=== PATIENT | male | born 1985 | race African-American/Black ===

== ENCOUNTER 2024-10-28 14:29 | Emergency (ER) | payer OTHER ==
[2024-10-28] MEDS ORDERED: NA CHLORIDE 0.9% 500 ML ONE (14:54)
[2024-10-28] MEDS ORDERED: KETOROLAC 30 MG/ML INJ ONE (14:54)
[2024-10-28 15:20] LABS: Absolute Lymphocytes (CBC) 2.1 K/uL (0.7-4.9); Hematocrit 42.9 % (39.6-49.0); Hemoglobin 14.4 g/dL (13.6-17.9); MCH 29.6 pg (27.0-35.0); MCHC 33.5 g/dL (32.0-36.0); MCV 88.2 fL (80-100); MPV 7.8 fL (7.6-11.3); Nucleated RBC Absolute Count 0.0 (0-0); Nucleated Red Blood Cells % 0.1 % (0-0); RBC Red Blood Cell Count 4.87 M/uL (4.33-5.43); White Blood Count 6.30 thou/uL (4.3-10.9)
[2024-10-28 15:30] LABS: PT Prothrombin Time 11.3 SECONDS (10-13.0); Protime INR 1.0
[2024-10-28 15:35] LABS: Sqamous Epithelial None Seen /HPF (None Seen); Urine Culture Reflex Order NOT NEEDED; Urine Microscopic Reflex YN ORDER UMIC
[2024-10-28 15:42] LABS: ALT/SGPT 35 U/L (16-61); AST/SGOT 24 U/L (15-37); Albumin 3.7 g/dL (3.4-5.0); Albumin/Globulin Ratio 1.1 (1.1-1.8); Alkaline Phosphatase 40 U/L (45-117); Anion Gap 6.3 mEq/L (5.0-15.0); BUN Blood Urea Nitrogen 12 mg/dL (7-18); Globulin 3.4 g/dL (2.3-3.5); Glucose Level 111 mg/dL (74-106); Potassium 4.3 mEq/L (3.5-5.1); Troponin High Sensitivity 4.1 pg/mL (<58.9)
[2024-10-28 15:57] LABS: METHAMPHETAM NEGATIVE (NEGATIVE); THC Cannibis NEGATIVE (NEGATIVE)
[2024-10-28 15:57] LABS: Bilirubin Indirect, Calculated 0.2 mg/dL (0.2-0.8)
--- NOTE | 2024-10-28 16:11 | RAD REPORT ---
EXAM: Chest Single View HISTORY: 39 years Male CHEST PAIN COMPARISON: No prior exams FINDINGS: LUNGS/PLEURA: The lungs are clear. No pleural effusions or pneumothorax. No pulmonary edema. CARDIAC/MEDIASTINUM: The cardiac silhouette is within normal limits. UPPER ABDOMEN: No significant abnormality. BONES: No acute abnormality. LINES/TUBES/OTHER: N/A IMPRESSION: No evidence of acute cardiopulmonary disease.
--- NOTE | 2024-10-28 17:54 | ER ---
Nurse's Notes [facility] Name: Garrett Couch Age: 39 yrs Sex: Male : 1985 Arrival Date: 10/28/2024 Time: 14:29 Bed 6 Private MD: Diagnosis: Chest pain, unspecified Presentation: 10/28 14:37 Chief complaint: Patient states: Chest discomfort that began suddenly just before 1300 ss today. Nursing Home nurse administered 324 mg ASA, and Nitro SL x 3 without relief. Coronavirus screen: Client denies travel out of the [place] in the last 14 days. Ebola Screen: Patient denies exposure to infectious person. Patient denies travel to an Ebola-affected area in the 21 days before illness onset. Initial Sepsis Screen: Does the patient meet any 2 criteria? No. Patient's initial sepsis screen is negative. Does the patient have a suspected source of infection? No. Patient's initial sepsis screen is negative. Risk Assessment: Do you want to hurt yourself or someone else? Patient reports no desire to harm self or others. Onset of symptoms was October 28, 2024. Care prior to arrival: IV initiated. 18 GA, in the right antecubital area. 14:37 Method Of Arrival: Law Enforcement: [place] [employer] 14:37 Acuity: SHANA 3 ss Triage Assessment: 15:04 General: Appears in no apparent distress. Behavior is calm, cooperative, appropriate bp for age. Pain: Complains of pain in chest. EENT: No deficits noted. Neuro: No deficits noted. Cardiovascular: Reports chest pain. Respiratory: No deficits noted. GI: No signs and/or symptoms were reported involving the gastrointestinal system. : No signs and/or symptoms were reported regarding the genitourinary system. Derm: No deficits noted. Musculoskeletal: No deficits noted. Historical: - Allergies: 14:39 No Known Allergies; ss - Home Meds: 14:40 lisinopril 20 mg Oral tablet 1 tab daily [Active]; ss - PMHx: 14:39 Asthma; Hypertensive disorder; ss - PSHx: 14:39 None; ss - Immunization history:: Adult Immunizations up to date. - Infectious Disease History:: Denies. - Social history:: Smoking status: Patient denies any tobacco usage or history of. Screenin:05 [facility] ED Fall Risk Assessment (Adult) History of falling in the last 3 months, bp including since admission No falls in past 3 months (0 pts) Confusion or Disorientation No (0 pts) Intoxicated or Sedated No (0 pts) Impaired Gait No (0 pts) Mobility Assist Device Used No (0 pt) Altered Elimination No (0 pt) Score/Fall Risk Level 0 - 2 = Low Risk Oriented to surroundings. Abuse screen: Denies threats or abuse. Denies injuries from another. Nutritional screening: No deficits noted. Tuberculosis screening: No symptoms or risk factors identified. Assessment: 15:05 General: SEE TRIAGE NOTE. bp 15:51 Reassessment: Patient appears in no apparent distress at this time. Patient and/or db family updated on plan of care and expected duration. Pain level reassessed. Patient is alert, oriented x 3, equal unlabored respirations, skin warm/dry/pink. General: Appears in no apparent distress. comfortable, Behavior is calm, cooperative. Vital Signs: 14:37 BP 129 / 79; Pulse 83; Resp 16; Temp 98.1(O); Pulse Ox 99% on R/A; Weight 102.51 kg; ss Height 5 ft. 10 in. ; Pain 7/10; 15:30 BP 112 / 74; Pulse 77; Resp 16; Pulse Ox 98% ; db 18:08 BP 120 / 73; Pulse 74; Resp 15; Pulse Ox 98% ; bp 14:37 Body Mass Index 32.43 (102.51 kg, 177.8 cm) ss 14:37 Pain Scale: Adult ss ED Course: 14:32 Patient arrived in ED. bc6 14:32 [facility]. cp 14:32 Marco Ruiz MD is Attending Physician. cp 14:39 Triage completed. ss 14:40 Arm band placed on right wrist. ss 14:58 El Unger, GISELL is Primary Nurse. bp 15:05 Patient has correct armband on for positive identification. Client placed on continuous bp cardiac and pulse oximetry monitoring. NIBP monitoring applied. filtration plant mechanic on. Pulse ox on. NIBP on. 15:05 Initial lab(s) drawn, by ED staff, sent to lab. EKG done, by ED staff, reviewed by bp Marco Quesada PA-C. Inserted saline lock: 20 gauge in right antecubital area, using aseptic technique. Blood collected. Flushed with 10 mL NS. Patient maintains SpO2 saturation greater than 95% on room air. 15:07 EKG done, by optical coating technician. ts3 15:18 Urine collected: clean catch specimen, sent to lab. ts3 16:06 XRAY Chest (1 view) In Process Unspecified. EDMS 17:52 Mitzi No MD is Referral Physician. cp 18:09 No provider procedures requiring assistance completed. IV discontinued, intact, bp bleeding controlled, No redness/swelling at site. Pressure dressing applied. Administered Medications: 15:19 Drug: Ketorolac IVP 15 mg IVP once Route: IVP; Site: right antecubital; bp 18:10 Follow up: Response: No adverse reaction bp 15:19 Drug: NS 0.9% IV 500 ml 500 ml IV at 1 bolus once; to be given as a bolus over 60 bp minutes Volume: 500 ml; Route: IV; Rate: 1 bolus; Site: right antecubital; 18:10 Follow up: IV Status: Completed infusion bp Medication: 15:05 VIS not applicable for this client. bp Outcome: 17:53 Discharge ordered by MD. cp 18:09 Discharged to Law Enforcement bp 18:09 Condition: stable 18:09 Discharge instructions given to police, Instructed on discharge instructions, follow up and referral plans. medication usage, Demonstrated understanding of instructions, follow-up care, medications, Prescriptions given X 1, 18:10 Patient left the ED. bp Signatures: Dispatcher [employer] EDSC Cristal Ospina RN RN ss Marco Quesada, PA-Jazzmine PA-El Schaefer cp, RN RN bp Shelby Jaeger RN RN Darlyn [facility] Zain Seymoursha ts3
--- NOTE | 2024-10-28 17:54 | EDPHYS ---
Physician Documentation [facility] Name: Garrett Couch Age: 39 yrs Sex: Male : 1985 Arrival Date: 10/28/2024 Time: 14:29 Bed 6 Private MD: ED Physician Marco Ruiz HPI: 10/28 14:35 This 39 yrs old Black Male presents to ER via Unassigned with complaints of Chest Pain. cp 14:35 The patient or guardian reports chest pain that is located primarily in the anterior cp chest wall, left. The pain radiates to left neck. The chest pain is described as a pressure. Duration: The patient or guardian reports a single episode, that is still ongoing, started about 1130. 14:35 Associated signs and symptoms: Pertinent negatives: abdominal pain, cough, diaphoresis, cp lower extremity pain, lower extremity swelling, palpitations, shortness of breath, syncope, vomiting, fever. 14:35 Severity of pain: in the emergency department the pain is unchanged. cp Historical: - Allergies: 14:39 No Known Allergies; ss - Home Meds: 14:40 lisinopril 20 mg Oral tablet 1 tab daily [Active]; ss - PMHx: 14:39 Asthma; Hypertensive disorder; ss - PSHx: 14:39 None; ss - Immunization history:: Adult Immunizations up to date. - Infectious Disease History:: Denies. - Social history:: Smoking status: Patient denies any tobacco usage or history of. ROS: 14:40 Constitutional: Negative for body aches, chills, fever, poor PO intake, cp 14:40 Cardiovascular: Positive for chest pain, edema, palpitations, cp 14:40 Respiratory: Negative for cough, shortness of breath, wheezing, Exam: 14:45 Constitutional: The patient appears in no acute distress, alert, awake, cp non-diaphoretic, non-toxic, well developed, well nourished, 14:45 Head/Face: Normocephalic, atraumatic. cp 14:45 Eyes: Periorbital structures: appear normal, Conjunctiva: normal, no exudate, no injection, Sclera: no appreciated abnormality, Lids and lashes: appear normal, bilaterally, 14:45 ENT: External ear(s): are unremarkable, Nose: is normal, Mouth: Lips: moist, Oral mucosa: moist, Posterior pharynx: Airway: no evidence of obstruction, patent, 14:45 Chest/axilla: Inspection: normal, Palpation: is normal, no crepitus, no tenderness, 14:45 Cardiovascular: Rate: normal, Rhythm: regular, Edema: is not appreciated, JVD: is not appreciated, 14:45 Respiratory: the patient does not display signs of respiratory distress, Respirations: normal, no use of accessory muscles, no retractions, labored breathing, is not present, Breath sounds: are clear throughout, no decreased breath sounds, no stridor, no wheezing, 14:45 Abdomen/GI: Inspection: abdomen appears normal, Bowel sounds: active, all quadrants, Palpation: abdomen is soft and non-tender, in all quadrants, 14:45 Back: pain, is absent, ROM is normal, 14:45 Neuro: Orientation: to person, place \T\ time. Mentation: is normal, Motor: moves all fours, strength is normal, Sensation: is normal, 15:05 ECG was reviewed by the Attending Physician. Vital Signs: 14:37 BP 129 / 79; Pulse 83; Resp 16; Temp 98.1(O); Pulse Ox 99% on R/A; Weight 102.51 kg; ss Height 5 ft. 10 in. ; Pain 7/10; 15:30 BP 112 / 74; Pulse 77; Resp 16; Pulse Ox 98% ; db 18:08 BP 120 / 73; Pulse 74; Resp 15; Pulse Ox 98% ; bp 14:37 Body Mass Index 32.43 (102.51 kg, 177.8 cm) ss 14:37 Pain Scale: Adult ss MDM: 14:39 Medical Screening Exam initiated ashley 17:53 Data reviewed: vital signs, nurses notes, lab test result(s), EKG, radiologic studies, cp plain films, and as a result, I will discharge patient. 17:53 I considered the following discharge prescriptions or medication management in the emergency department Medications were administered in the Emergency Department. See MAR. Independent interpretation of the following test(s) in the Emergency Department EKG: See my EKG interpretation above. 10/28 14:34 Order name: Basic Metabolic Panel; Complete Time: 16:02 10/28 16:02 Interpretation: Normal except: CL 111; GLUC 111. 10/28 14:34 Order name: CBC with Diff; Complete Time: 16:02 10/28 14:34 Order name: LFT's; Complete Time: 16:02 10/28 16:03 Interpretation: Normal except: ALK 40. 10/28 14:34 Order name: PT-INR; Complete Time: 16:02 10/28 14:34 Order name: Troponin HS; Complete Time: 16:02 10/28 16:03 Interpretation: Reviewed. 10/28 14:34 Order name: UA Rfx Soham Cult if indicated; Complete Time: 16:02 10/28 14:34 Order name: UDS; Complete Time: 16:02 cp 10/28 16:03 Interpretation: Reviewed. 10/28 17:05 Order name: Troponin High Sensitivity; Complete Time: 17:52 10/28 17:52 Interpretation: Reviewed. 10/28 14:34 Order name: XRAY Chest (1 view); Complete Time: 16:19 10/28 16:19 Interpretation: Report review. 10/28 14:34 Order name: Cardiac monitoring; Complete Time: 15:06 10/28 14:34 Order name: EKG - Nurse/Tech; Complete Time: 15:06 10/28 14:34 Order name: IV Saline Lock; Complete Time: 15:06 10/28 14:34 Order name: Labs collected and sent; Complete Time: 15:06 10/28 14:34 Order name: O2 Per Protocol; Complete Time: 15:06 10/28 14:34 Order name: O2 Sat Monitoring; Complete Time: 15:06 cp EC:05 Rate is 76 beats/min. Rhythm is irregular. VA interval is normal. QRS interval is cp normal. QT interval is normal. T waves are Inverted in leads III, aVF. Interpreted by me. Reviewed by me. Administered Medications: 15:19 Drug: Ketorolac IVP 15 mg IVP once Route: IVP; Site: right antecubital; bp 18:10 Follow up: Response: No adverse reaction bp 15:19 Drug: NS 0.9% IV 500 ml 500 ml IV at 1 bolus once; to be given as a bolus over 60 bp minutes Volume: 500 ml; Route: IV; Rate: 1 bolus; Site: right antecubital; 18:10 Follow up: IV Status: Completed infusion bp Disposition: 10/29 09:02 Co-signature as Attending Physician, Marco Ruiz MD I agree with the assessment and the [facility] plan of care. 14:53 Chart complete. cp Disposition Summary: 10/28/24 17:53 Discharge Ordered Notes: Location: Home cp Problem: new cp Symptoms: have improved cp Condition: Stable cp Diagnosis - Chest pain, unspecified cp Followup: cp - With: Mitzi No MD - When: 2 - 3 days - Reason: Recheck today's complaints Discharge Instructions: - Discharge Summary Sheet cp - Nonspecific Chest Pain, Adult cp - Aspirin and Your Heart cp Forms: - Medication Reconciliation Form cp - Antibiotic Education cp - Prescription Opioid Use cp - Patient Portal Instructions cp - Leadership Thank You Letter cp Prescriptions: - Ibuprofen 800 mg Oral Tablet - take 1 tablet ORAL route every 8 hours As needed take with food; 30 tablet; cp Refills: 0, Product Selection Permitted Signatures: Dispatcher [employer] EDMarco Pineda MD MD cha Blanchard, Shelby, RN RN ss Marco Quesada PA-C PAEl Lockwood cp, RN RN bp Corrections: (The following items were deleted from the chart) 10/28 14:34 14:34 BASIC METABOLIC PANEL+C.LAB.BRZ ordered. EDMS EDMS 14:34 14:34 CBC+H.LAB.BRZ ordered. EDMS EDMS 14:34 14:34 HEPATIC FUNCTION+C.LAB.BRZ ordered. EDMS EDMS 14:34 14:34 PROTIME (+INR)+COAG.LAB.BRZ ordered. EDMS EDMS 14:34 14:34 Troponin High Sensitivity+C.LAB.BRZ ordered. EDMS EDMS 14:34 14:34 UA Rfx Soham Cult if indicated+U.LAB.BRZ ordered. EDMS EDMS 14:34 14:34 URINE DRUG SCREEN+UC.LAB.BRZ ordered. EDMS EDMS 14:35 14:35 Chest Single View+RAD.RAD.BRZ ordered. EDMS EDMS
[2024-10-28 19:14] VITALS: TEMP 98.1
[2024-10-28 19:15] VITALS: O2SAT 98
[2024-10-28 19:17] VITALS: BP 120/73
== END 2024-10-28 18:10 | disposition home or self-care (01) ==
LOC: ER 14:29
DX: R07.9 Chest pain, unspecified (principal); I10 Essential (primary) hypertension; J45.909 Unspecified asthma, uncomplicated
CPT/HCPCS: 36415; 71045; 80048; 80076; 80307; 81001; 84484; 85025; 85610; 93005; 96361; 96374; 99285; J7040